=== PATIENT | female | born 1940 ===

== ENCOUNTER → 2017-01-25 | Outpatient (CLI) | payer MEDICARE, OTHER | END | disposition disaster alternative care site (69) | LOC: LCNC 09:38 | DX: E89.0 Postprocedural hypothyroidism (principal) ==

== ENCOUNTER → 2017-02-24 | Outpatient (CLI) | payer MEDICARE, OTHER | END | disposition disaster alternative care site (69) | LOC: LCNC 09:33 | DX: E89.0 Postprocedural hypothyroidism (principal) ==